=== PATIENT | male | born 1965 | race American Indian/Alaskan Native ===

== ENCOUNTER 2019-03-27 09:27 | Observation (INO) | payer MEDICARE ==
[2019-03-27] MEDS ORDERED: LACTATED RINGERS 1,000 ML IV SCH (09:28)
[2019-03-27] MEDS ORDERED: GENTAMICIN/NS 80 MG/100 ML 100 ML IV SCH (10:00)
[2019-03-27] MEDS ORDERED: LEVAQUIN 500MG/100ML 500 MG/100 ML BAG IV NR (10:00)
[2019-03-27 10:29] LABS: Basophils % (Auto) 0.7 % (0.0-1.8); Eosinophils # (Auto) 0.1 K/mm3 (0.0-0.4); Eosinophils % (Auto) 0.9 % (0.0-4.3); Hematocrit 43.2 % (35.5-45.6); Lymphocytes # (Auto) 1.2 K/mm3 (1.2-5.4); Lymphocytes % (Auto) 19.7 % (13.4-35.0); Mean Corpuscular HGB Conc 35 % (32-34); Mean Corpuscular Volume 95 fl (84-94); Monocytes # (Auto) 0.5 K/mm3 (0.0-0.8); Monocytes % (Auto) 7.8 % (0.0-7.3); Platelet Count 260 K/mm3 (140-440); Red Blood Count 4.54 M/mm3 (3.65-5.03); Red Cell Distribution Width 14.4 % (13.2-15.2)
[2019-03-27 10:43] LABS: Alanine Aminotransferase 16 units/L (7-56); Albumin 4.3 g/dL (3.9-5); BUN/Creatinine Ratio 10; Blood Urea Nitrogen 7 mg/dL (9-20); Calcium 9.3 mg/dL (8.4-10.2); Hemolysis Index 2
--- NOTE | 2019-03-27 10:52 | Anesthesia Consultation ---
Anesthesia Consult and Med Hx Date of service: 03/27/19 - Airway ROM Head & Neck: Adequate Mental/Hyoid Distance: Adequate Mallampati Class: Class III Intubation Access Assessment: Possibly Difficult - Pulmonary Exam CTA: Yes - Cardiac Exam Cardiac Exam: RRR - Pre-Operative Health Status ASA Pre-Surgery Classification: ASA3 Proposed Anesthetic Plan: General - Pulmonary Hx Smoking: Yes (1 PPD X 30 YRS) Hx Respiratory Symptoms: No COPD: No Hx Sleep Apnea: No (NIGHAT PRE SCREEN HIGH RISK) - Cardiovascular System Hx Hypertension: No Hx Heart Attack/AMI: No Hx Percutaneous Transluminal Coronary Angioplasty (PTCA): No - Central Nervous System Hx Seizures: No CVA: No Hx Back Pain: Yes (NECK PAIN s/p ACDF) - Gastrointestinal Hx Gastroesophageal Reflux Disease: No - Endocrine Hx Renal Disease: No Hx Liver Disease: Yes (hx Hep B) Hx Insulin Dependent Diabetes: No Hx Non-Insulin Dependent Diabetes: No - Other Systems Hx Alcohol Use: Yes (BEER QD) Hx Cancer: No Hx Obesity: No - Additional Comments Anesthesia Medical History Comments: No hx anesthetic complications.
[2019-03-27] MEDS ORDERED: DILAUDID IV PRN (11:00)
[2019-03-27] MEDS ORDERED: VERSED IV NR (11:00)
[2019-03-27] MEDS ORDERED: SUBLIMAZE ONE (11:17)
[2019-03-27] MEDS ORDERED: DIPRIVAN 10 MG/ML IV ONE ×2 (11:17→12:53)
[2019-03-27] MEDS ORDERED: NEOSPORIN GU IR ONE ×2 (11:20→11:50)
[2019-03-27] MEDS ORDERED: MARCAINE-EPI 0.25%-1:200,000 INFILTRATI ONE (11:20)
[2019-03-27] MEDS ORDERED: PROAIR IH ONE (11:23)
[2019-03-27] MEDS ORDERED: DILAUDID ONE (11:39)
[2019-03-27] MEDS ORDERED: NACL 0.9% IR ONE ×2 (11:50→13:20)
[2019-03-27] MEDS ORDERED: GENTAMICIN ONE (12:02)
[2019-03-27] MEDS ORDERED: NEURONTIN PO ONE (14:00)
[2019-03-27] MEDS ORDERED: AMBIEN PO PRN (15:22)
--- NOTE | 2019-03-27 15:26 | Anesthesia Day of Surgery ---
Anesthesia Day of Surgery - Day of Surgery Patient Examined: Yes Patient H&P Reviewed: Yes Patient is NPO: Yes
--- NOTE | 2019-03-27 15:26 | Post Anesthesia Evaluation ---
- Post Anesthesia Evaluation Patient Participated: Yes Airway Patent: Yes Stable Respiratory Function: Yes Nausea/Vomiting: No Temp > 96.8F: Yes Pain Manageable: Yes Adequeate Hydration: Yes Anesthesia Complications: No
--- NOTE | 2019-03-27 15:54 | Operative Report ---
PREOPERATIVE DIAGNOSIS: Severe urinary stress incontinence. POSTOPERATIVE DIAGNOSIS: Severe urinary stress incontinence. PROCEDURE: Male sling [facility] SURGEON: Dr. Brett Villar and Dr. Vaz. ANESTHESIA: General. FINDINGS: This is a 54-year-old gentleman with severe leakage. He had urodynamics. He had cystoscopy. He leaks with any type of maneuver or moving or strain. He now presents for treatment. DESCRIPTION OF PROCEDURE: The patient was brought to the operating room and placed on the operating table. Following induction of anesthesia, placed in lithotomy position, prepped and draped in usual sterile fashion. Cystourethroscopy once again showed dislodged TURP defect. Catheter was inserted without difficulty. A perineal incision was made, carried down to the corpora spongiosum. This was opened. Excellent plane was developed on each side at the urethra. Careful attention was made not to enter or damage the urethra. In the right midline there was a band with branch of the artery right in the middle, so we had to ligate that in order once we placed the stay suture in the rectourethralis septum. We released it and we had 3-4 cm of mobility on the urethra. Once the dissection was complete, the retractor was removed and we localized the area for the puncture wound by 25-gauge spinal needle. This was marked. It was 1 cm below the adductor and just lateral to the pelvis. At this point, the right side than the left side was carried out. The patient tolerated the procedure well. The needle was brought through at the apex and the mesh was connected on each side. We secured the mesh distally and proximally with 3-0 Vicryl. Cystoscopy showed excellent coaptation with significant movement of the urethra proximally. The patient tolerated the procedure well. Estimated blood loss was less than 100 mL. There were no complications. Wound was irrigated. Closure was accomplished with 3-0 Vicryl in multiple layers. The stab wounds were closed with 3-0 Vicryl brought to recovery room in stable condition. JOB# [id number] NAHID/MANNY
[2019-03-27] MEDS ORDERED: D5/0.45NS 1,000 ML IV SCH (16:00)
[2019-03-27] MEDS: PERCOCET 5/325 PO PRN ×2 (16:02→20:00)
--- NOTE | 2019-03-27 17:14 | Post Operative Note ---
Date of procedure: 03/27/19 Pre-op diagnosis: stress incont Post-op diagnosis: same Findings: same Procedure: cysto sling Anesthesia: DARCI Surgeon: HARVEY BLEDSOE [employer] Assistant: BRUNO CARTER Estimated blood loss: 50-100ml Pathology: none Condition: stable Disposition: PACU
[2019-03-27] MEDS: NEURONTIN PO SCH (20:02)
[2019-03-28] MEDS: PERCOCET 5/325 PO PRN ×3 (00:06→12:15)
[2019-03-28] MEDS: NEURONTIN PO SCH ×2 (08:02→12:15)
--- NOTE | 2019-03-28 12:23 | Progress Note ---
Assessment and Plan min pain concepcion clear home Subjective Date of service: 03/28/19 Principal diagnosis: usi Objective - Constitutional Vitals: Vital Signs - 12hr 03/28/19 03/28/19 03/28/19 01:06 07:33 11:15 Temperature 98.2 F 97.4 F L Pulse Rate 71 74 Respiratory 17 18 18 Rate Blood Pressure 131/78 133/79 O2 Sat by Pulse 100 98 Oximetry General appearance: Present: no acute distress - Neck Neck: supple - Respiratory Respiratory effort: normal Extremities: no ischemia - Gastrointestinal General gastrointestinal: Present: soft, non-tender - Genitourinary Male genitourinary: normal - Labs CBC & Chem 7: 03/27/19 10:05 03/27/19 10:05 Medications & Allergies - Medications Allergies/Adverse Reactions: Allergies ibuprofen Allergy (Verified 03/02/19 12:15) Vomiting Penicillins Allergy (Verified 03/02/19 12:15) Anaphylaxis tramadol Allergy (Verified 03/02/19 12:16) Vomiting , ABD PAIN Home Medications: Home Medications Medication Instructions Recorded Confirmed Last Taken Type Gabapentin [Neurontin] 800 mg PO TID 03/02/19 03/27/19 03/27/19 06:00 History Active Medications: Generic Name Dose Route Start Last Admin Trade Name Freq PRN Reason Stop Dose Admin Gabapentin 800 mg 03/27/19 20:00 03/28/19 12:15 Neurontin PO 800 mg TID CANDI Administration Gentamicin Sulfate/Sodium Chloride 100 mls @ 200 mls/hr 03/27/19 10:00 Garamycin/Ns 80 Mg/100 Ml IV PREOP CANDI Dextrose/Sodium Chloride 1,000 mls @ 125 mls/hr 03/27/19 16:00 03/27/19 23:26 D5/0.45ns IV 125 mls/hr DIRECT CANDI Administration Oxycodone/Acetaminophen 1 tab 03/27/19 15:21 03/28/19 12:15 Percocet 5/325 PO 1 tab Q4H PRN Administration Pain, Moderate (4-6) Zolpidem Tartrate 5 mg 03/27/19 15:22 03/27/19 21:49 Ambien PO 5 mg QHS PRN Administration Sleep
--- NOTE | 2019-03-28 12:25 | Discharge Summary ---
Short Stay Discharge Plan Activity: other (no strasining ) Weight Bearing Status: Full Weight Bearing Diet: regular Wound: open to air Durable Medical Equipment Needed Upon Discharge: other (concepcion care ) Follow up with: SAMPSON CHENG MD [Primary Care Provider] - 7 Days HARVEY BLEDSOE MD [Staff Physician] - 03/30/19 Forms: [facility]
[2019-03-28 14:08] VITALS: BP 133/79
== END 2019-03-28 13:50 | disposition home or self-care (01) ==
LOC: OR 09:27 → 3B-SURG 15:13
PROVIDERS: ADMIT Urology; ATTEND Urology
DX: N39.3 Stress incontinence (female) (male) (principal); Z88.8 Allergy status to other drugs, medicaments and biological substances; Z88.0 Allergy status to penicillin; Z79.899 Other long term (current) drug therapy
CPT/HCPCS: 36415; 53440; 80053; 85025; 86850; 86900; 86901; 96374; A4217; C1771; G0378; J1170; J1580; J1956; J2250; J2704; J3010; J7120